=== PATIENT | female | born 1975 | race Caucasian/White ===

== ENCOUNTER 2017-04-23 19:06 | Emergency (ER) | payer OTHER, MEDICAID ==
[~2017-04-23] VITALS: Ht 167.6 cm; Wt 53.7 kg
[2017-04-23] MEDS ORDERED: mupirocin 2% ointment 22GM TP STA (20:23)
[2017-04-23] MEDS ORDERED: CEPH500C2 PO (20:39)
[2017-04-23 21:08] LABS: URINE HCG NEGATIVE (NEG)
[2017-04-23] MEDS ORDERED: naproxen 500mg tablet PO ONE (21:15)
[2017-04-23] MEDS ORDERED: cephalexin 250mg capsule PO ONE (21:15)
[2017-04-23] MEDS ORDERED: HYDROcodone/acetaminophen 10/325mg tab PO ONE (21:15)
[2017-04-23 21:23] VITALS: BP 116/69
== END 2017-04-23 21:24 | disposition home or self-care (01) ==
LOC: ER 19:07
DX: S61.401A Unspecified open wound of right hand, initial encounter (principal); L03.113 Cellulitis of right upper limb; W23.0XXA Caught, crushed, jammed, or pinched between moving objects, initial encounter; Y93.89 Activity, other specified; Y92.89 Other specified places as the place of occurrence of the external cause; Y99.8 Other external cause status
CPT/HCPCS: 73130; 81025; 99285; A6255